=== PATIENT | female | born 1985 | race Two or more races ===

== ENCOUNTER 2017-04-27 10:57 | Emergency (ER) | payer MEDICAID ==
[~2017-04-27] VITALS: Ht 165.1 cm; Wt 74.6 kg
[2017-04-27 12:47] LABS: BASOPHILS % 0.7 % (0.0-2.0); HEMATOCRIT. 29.7 % (36.0-48.0); LYMPHOCYTES % 27.9 % (20.0-50.0); MEAN CORPUSCULAR HEMOGLOBIN 30.7 pg (28.0-32.0); MEAN CORPUSCULAR VOLUME 90.9 fL (81.0-99.0); MEAN PLATELET VOLUME 8.3 fl (7.4-10.4); MONOCYTES % 7.9 % (2.0-8.0); NEUTROPHILS % 63.5 % (40.0-76.0); PLATELET 299 x1000/uL (130-400); RED BLOOD CELL COUNT 3.26 mill/uL (4.2-5.4); RED CELL DISTRIBUTION WIDTH 16.4 % (11.6-14.6)
[2017-04-27 12:55] LABS: CHLORIDE 109 mEq/L (98-107); PROTHROMBIN TIME 10.6 sec
[2017-04-27 13:06] LABS: CARBON DIOXIDE 24 mEq/L (21-32); TROPONIN I < 0.02 ng/mL (0.00-0.04)
[2017-04-27 14:04] VITALS: BP 124/77
[2017-04-27 14:22] LABS: BG BASE EXCESS -4.5 mmol/L (-2.0-2.0); BG CARBOXYHEMOGLOBIN 0.3 % (0.5-1.5); BG DEOXYHEMOGLOBIN 2.3 % (0.0-5.0); BG FRACTION INSPIRED OXYGEN 21; BG HCO3 ACT 18.2 mmol/L (22.0-26.0); BG METHEMOGLOBIN 0.3 % (0.0-1.5); BG OXYGEN SATURATION 97.7 % (92.0-98.5); BG OXYHEMOGLOBIN 97.1 % (94.0-97.0); BG PH 7.447 (7.350-7.450); BG PO2 114.8 mmHg (75.0-100.0); BG SAMPLE SITE RIGHT BRACHIAL; BG TOTAL HEMOGLOBIN 12.3 g/dL (12.0-18.0); BG VENT MODE ROOM AIR
== END 2017-04-27 16:13 | disposition home or self-care (01) ==
LOC: ER 13:32
DX: R07.9 Chest pain, unspecified (principal)
CPT/HCPCS: 36415; 36600; 71010; 80053; 82375; 82805; 83880; 84484; 85025; 85610; 93005; 99285; J7030; Z7610

== ENCOUNTER 2017-07-19 21:04 | Emergency (ER) | payer MEDICAID ==
[~2017-07-19] VITALS: Ht 165.1 cm; Wt 59.0 kg
[2017-07-19 21:17] VITALS: BP 112/58
[2017-07-19] MEDS ORDERED: METHYLPREDNISOLONE SOD SUCC 125 MG/2 ML VIAL IM STA (22:41)
[2017-07-19] MEDS ORDERED: PENICILLIN G BENZATHINE 1,200,000 UNITS/2ML SYR IM ONE (22:45)
== END 2017-07-19 23:54 | disposition home or self-care (01) ==
LOC: ER 21:54
DX: J02.9 Acute pharyngitis, unspecified (principal); R05 Cough
CPT/HCPCS: 96372; 99284; J0561; J2930

== ENCOUNTER 2018-11-14 13:34 | Emergency (ER) | payer MEDICAID ==
[~2018-11-14] VITALS: Ht 160 cm; Wt 71.0 kg
[2018-11-14 13:35] VITALS: BP 110/66
== END 2018-11-14 18:10 | disposition left against medical advice (07) ==
LOC: ER 14:02
DX: R07.89 Other chest pain (principal); Z53.21 Procedure and treatment not carried out due to patient leaving prior to being seen by health care provider

== ENCOUNTER 2019-03-10 12:17 | Emergency (ER) | payer MEDICAID ==
[~2019-03-10] VITALS: Ht 165.1 cm; Wt 75.0 kg
[2019-03-10] MEDS ORDERED: IBUPROFEN 600MG TABLET PO ONE (13:15)
[2019-03-10 13:32] LABS: BASOPHILS % 0.7 % (0.0-2.0); EOSINOPHILS % 0.2 % (0.0-5.0); HEMATOCRIT. 37.4 % (36.0-48.0); HEMOGLOBIN. 12.7 g/dL (12.0-16.0); LYMPHOCYTES % 31.3 % (20.0-50.0); MEAN CORPUSCULAR HEMOGLOBIN 30.7 pg (28.0-32.0); MEAN CORPUSCULAR VOLUME 90.9 fL (81.0-99.0); MONOCYTES % 7.3 % (2.0-8.0); NEUTROPHILS % 60.5 % (40.0-76.0); PLATELET 276 x1000/uL (130-400); RED BLOOD CELL COUNT 4.12 mill/uL (4.2-5.4)
[2019-03-10 13:40] LABS: CHLORIDE 109 mEq/L (98-107)
[2019-03-10 13:44] LABS: D-DIMER 0.5 mg/L FEU (<0.50); PARTIAL THROMBOPLASTIN TIME 27.7 sec (23.4-31.0); PROTHROMBIN TIME 10.3 sec (9.6-11.0)
[2019-03-10 16:03] VITALS: BP 103/66
== END 2019-03-10 15:43 | disposition home or self-care (01) ==
LOC: ER 12:17
DX: R07.89 Other chest pain (principal); Z98.890 Other specified postprocedural states
CPT/HCPCS: 36415; 71045; 81025; 85379; 93005; 99284

== ENCOUNTER 2020-04-20 18:30 | Emergency (ER) | payer MEDICAID | END 2020-04-20 19:26 | disposition left against medical advice (07) | LOC: ER 18:30 | DX: T18.9XXA Foreign body of alimentary tract, part unspecified, initial encounter (principal); Z53.21 Procedure and treatment not carried out due to patient leaving prior to being seen by health care provider; X58.XXXA Exposure to other specified factors, initial encounter; Y93.89 Activity, other specified; Y92.89 Other specified places as the place of occurrence of the external cause; Y99.8 Other external cause status ==

== ENCOUNTER 2022-04-19 10:26 | Emergency (ER) | payer MEDICAID ==
[~2022-04-19] VITALS: Ht 167.6 cm; Wt 75.0 kg
[2022-04-19] MEDS ORDERED: ACETAMINOPHEN 325MG TABLET PO ONE (11:30)
[2022-04-19 12:14] LABS: CLARITY URINE CLEAR (CLEAR); COLOR URINE YELLOW (YELLOW); KETONES URINE TRACE (NEGATIVE); LEUKOCYTE ESTERASE URINE TRACE (NEGATIVE); NITRITE URINE POSITIVE (NEGATIVE); OCCULT BLOOD URINE 3+ (NEGATIVE); PROTEIN URINE 2+ (NEGATIVE); SPECIFIC GRAVITY URINE 1.024 (1.005-1.030); UROBILINOGEN URINE 0.2 E.U./dL (0.2-1.0)
[2022-04-19] MEDS ORDERED: PYR200 MT (13:05)
[2022-04-19] MEDS ORDERED: NITR-87 MT (13:05)
[2022-04-19] MEDS ORDERED: OMEP20TA23 MT (13:38)
[2022-04-19 14:02] VITALS: BP 105/75
== END 2022-04-19 14:03 | disposition home or self-care (01) ==
LOC: ER 10:26
DX: N39.0 Urinary tract infection, site not specified (principal); Z98.890 Other specified postprocedural states
CPT/HCPCS: 81003; 81025; 87077; 87186; 99283

== ENCOUNTER 2022-05-17 16:56 | Emergency (ER) | payer MEDICAID ==
[~2022-05-17] VITALS: Ht 167.6 cm; Wt 70.0 kg
[~2022-05-17 16:56] MED LIST: NITR-87 MT; OMEP20TA23 MT; PYR200 MT
[2022-05-17 17:08] VITALS: BP 112/52
[2022-05-17] MEDS ORDERED: HYDR453.3 TP (19:08)
[2022-05-17] MEDS ORDERED: DIPH25CA83 MT (19:08)
== END 2022-05-17 20:00 | disposition home or self-care (01) ==
LOC: ER 17:07
DX: R21 Rash and other nonspecific skin eruption (principal); Z87.19 Personal history of other diseases of the digestive system; Z98.890 Other specified postprocedural states; Z91.018 Allergy to other foods
CPT/HCPCS: 99282

== ENCOUNTER 2024-09-20 09:40 | Emergency (ER) | payer MEDICAID, OTHER ==
[~2024-09-20] VITALS: Ht 154.9 cm; Wt 71.0 kg
[~2024-09-20 09:40] MED LIST changes: +DIPH25CA83 MT; +HYDR453.3 TP
[2024-09-20 09:52] VITALS: BP 98/66; TEMP 98.3; O2SAT 98
[2024-09-20 09:55] VITALS: PULSE 88; RESP 19; O2SAT 97
[2024-09-20 13:11] LABS: CLARITY URINE CLEAR (CLEAR); COLOR URINE YELLOW (YELLOW); GLUCOSE URINE NEGATIVE (NEGATIVE); KETONES URINE TRACE (NEGATIVE); LEUKOCYTE ESTERASE URINE NEGATIVE (NEGATIVE); NITRITE URINE NEGATIVE (NEGATIVE); OCCULT BLOOD URINE NEGATIVE (NEGATIVE); PH URINE 5.5 (4.5-8.0); PROTEIN URINE NEGATIVE (NEGATIVE); SPECIFIC GRAVITY URINE 1.026 (1.005-1.030); UROBILINOGEN URINE 0.2 E.U./dL (0.2-1.0)
[2024-09-20] MEDS: ACETAMINOPHEN 325MG TABLET PO ONE (14:19)
[2024-09-20] MEDS: IBUPROFEN 400MG TABLET PO ONE (14:19)
[2024-09-20] MEDS ORDERED: IBUP-2028 MT (14:32)
[2024-09-20] MEDS ORDERED: TOPUD PO (14:32)
[2024-09-20] MEDS ORDERED: OMEP20CA14 MT (15:01)
== END 2024-09-20 15:07 | disposition home or self-care (01) ==
LOC: ER 09:40
DX: N83.201 Unspecified ovarian cyst, right side (principal); M32.9 Systemic lupus erythematosus, unspecified; Z79.899 Other long term (current) drug therapy; Z98.890 Other specified postprocedural states
CPT/HCPCS: 76830; 76856; 81003; 81025; 99284

== ENCOUNTER 2024-12-21 09:59 | Emergency (ER) | payer MEDICAID, OTHER ==
[~2024-12-21] VITALS: Ht 154.9 cm; Wt 69.0 kg
[~2024-12-21 09:59] MED LIST changes: +IBUP-2028 MT; +OMEP20CA14 MT; +TOPUD PO
[2024-12-21 10:05] VITALS: TEMP 36.8; O2SAT 100
[2024-12-21 10:24] VITALS: BP 115/80; PULSE 90; RESP 20; O2SAT 100
[2024-12-21] MEDS: ACETAMINOPHEN 325MG TABLET PO STA (10:38)
[2024-12-21 11:32] LABS: BASOPHILS % 1.1 % (0.0-2.0); HEMATOCRIT. 38.3 % (36.0-48.0); HEMOGLOBIN. 12.5 g/dL (12.0-16.0); LYMPHOCYTES % 35.8 % (20.0-50.0); MEAN CORPUSCULAR HEMOGLOBIN 30.7 pg (28.0-32.0); MEAN CORPUSCULAR HGB CONC 32.7 g/dL (31.0-37.0); MEAN PLATELET VOLUME 8.5 fl (7.4-10.4); MONOCYTES % 5.8 % (2.0-8.0); NEUTROPHILS % 57.3 % (40.0-76.0); PLATELET 283 x1000/uL (130-400); RED BLOOD CELL COUNT 4.07 mill/uL (4.2-5.4); RED CELL DISTRIBUTION WIDTH 12.2 % (11.6-14.6); WHITE BLOOD COUNT 5.8 x1000/uL (4.5-11.0)
[2024-12-21 11:33] LABS: CARBON DIOXIDE 28 mEq/L (21-32); CHLORIDE 106 mEq/L (98-107); POTASSIUM 3.7 mEq/L (3.5-5.1); SODIUM 139 mEq/L (136-145)
[2024-12-21 11:34] LABS: CALCIUM 9.3 mg/dL (8.7-10.4)
[2024-12-21 11:39] LABS: CREATININE 0.6 mg/dL (0.6-1.0); GLUCOSE 89 mg/dL (70-105); UREA NITROGEN BLOOD 14 mg/dL (9-23)
[2024-12-21 12:28] LABS: TROPONIN I HIGH SENSITIVITY < 4 ng/L (3.0-34)
== END 2024-12-21 13:03 | disposition home or self-care (01) ==
LOC: ER 09:59
DX: R07.89 Other chest pain (principal); Z79.899 Other long term (current) drug therapy; Z98.890 Other specified postprocedural states
CPT/HCPCS: 36415; 71045; 80048; 81025; 83880; 84484; 85025; 85379; 93005; 99285